=== PATIENT | male | born 1940 | race Caucasian/White ===

== ENCOUNTER 2019-03-20 01:34 | Emergency (ER) | payer MEDICARE, OTHER ==
[2019-03-20] MEDS ORDERED: Acetaminophen 500 MG TAB ONE (04:00)
--- NOTE | 2019-03-20 08:47 | RAD ---
LUMBAR SPINE RADIOGRAPHS THREE VIEWS: INDICATIONS: Pain. FINDINGS: There is mild degenerative change without compression fracture or subluxation. Incidental note of at herosclerosis. IMPRESSION: No acute osseous abnormality of the lumbar spine . POS: C
--- NOTE | 2019-03-20 09:06 | RAD ---
RIGHT KNEE FOUR VIEWS: INDICATIONS: Pain. FINDINGS: There is no fracture or dislocation. Mild osteoarthritis. There is vascular calcification. IMPRESSION: No acute osseous abnormality of the right knee. POS: [facility]
--- NOTE | 2019-03-20 09:07 | RAD ---
FRONTAL VIEW PELVIS: INDICATIONS: Pain. FINDINGS: There is postoperative fixation about the left acetabulum, extending into the left ischium. There is no acute osseous abnormality visualized. Phleboliths are noted. IMPRESSION: Postoperative pelvis. No acute osseous abnormality. POS: C
== END 2019-03-20 04:30 ==
LOC: ERS 01:34
DX: M79.651 Pain in right thigh (principal); F17.210 Nicotine dependence, cigarettes, uncomplicated; W19.XXXA Unspecified fall, initial encounter
CPT/HCPCS: 72100; 72170